=== PATIENT | male | born 1950 | race Two or more races ===

== ENCOUNTER 2017-02-16 18:15 | Emergency (ER) | payer BC, MEDICARE ==
[~2017-02-16] VITALS: Ht 162.6 cm; Wt 68.0 kg
--- NOTE | 2017-02-16 18:33 | NUR ---
Dr Chaudhari at the bedside for eval and exam.
[2017-02-16 18:54] VITALS: BP 120/70
--- NOTE | 2017-02-16 18:54 | NUR ---
Patient discharged to home in stable conditon. Written and verbal after care instructions given. Patient verbalizes understanding of instructions.
== END 2017-02-16 18:55 | disposition home or self-care (01) ==
LOC: ER 18:29
DX: H66.91 Otitis media, unspecified, right ear (principal)
CPT/HCPCS: A4663